=== PATIENT | female | born 1995 | race Caucasian/White ===

== ENCOUNTER 2017-02-02 13:44 | Inpatient (IN) | payer BC ==
[~2017-02-02] VITALS: Ht 160 cm; Wt 78.0 kg
[~2017-02-02 13:44] MED LIST: ASPIR 8181 MG PO; CIPROFLOXACIN500 MG PO; GLU850 PO; GOOD SENSE ASPI81 M3 PO; HUMALOG MIX 50/10 ML SQ; HUMALOG100 U/ML SC; HUMALOG100 U/ML SQ; HUMULIN R100 U/1 M1 SC; HUMULIN10 ML SQ; INS7030 SC; LAC PO; LANTUS SOLOS100 U/M1 SC; LANTUS SOLOS100 U/M1 SQ; LEVEMIR100 U/M1 SC; LEVEMIR100 U/M1 SQ; LIPI10 PO; MAC100 PO; ZOC10 PO
[2017-02-02 14:59] LABS: PLATELET COUNT 496 x10^3mcL (130-400); RED CELL DISTRIBUTION WIDTH 16.4 % (11.5-14.5)
[2017-02-02 15:02] LABS: CALCIUM 9.6 mg/dL (8.5-10.1); CARBON DIOXIDE 10.8 mmol/L (21-32); CREATININE SERUM 1.4 mg/dL (0.6-1.0)
[2017-02-02 15:07] LABS: AMPHETAMINE QUAL UR NONE DETECTED (NEG <=1000)
[2017-02-02 15:07] LABS: ALBUMIN 4.3 g/dL (3.4-5.0); BILIRUBIN TOTAL 0.5 mg/dL (0.20-1.00); MAGNESIUM 2.3 mg/dL (1.8-2.4); PHOSPHOROUS 3.8 mg/dL (2.5-4.9)
[2017-02-02 15:09] LABS: TOTAL PROTEIN, SERUM 9.6 g/dL (6.4-8.2)
[2017-02-02 15:27] LABS: BAND NEUTROPHIL 0 % (0-10); BASOPHIL 0 % (0-2); MONOCYTE 4 % (0-7); SEGMENTED NEUTROPHILS 84 % (37-75)
[2017-02-02 15:28] LABS: PLATELET MORPHOLOGY PLATELETS NORMAL; rbc morphology (normal/abnorm) NORMAL (NORMAL)
[2017-02-02 16:18] LABS: UA SPECIFIC GRAVITY >=1.030 (1.005-1.035); microscopic required? YES; urine erythrocyte 1+ (NEGATIVE)
[2017-02-02 16:35] LABS: CHOLESTEROL/HDL RATIO 2.5
[2017-02-02 16:36] LABS: T3 TOTAL 0.77 ng/mL
[2017-02-02 16:43] LABS: FREE T4 0.96 ng/dL (0.76-1.46); FREE THYROXINE INDEX 2.5 ug/dL (1.4-4.5); T4(THYROXINE) 9.7 ug/dL (4.7-13.3)
[2017-02-02 16:59] VITALS: BP 116/77
[2017-02-02 20:51] LABS: CALCIUM 8.1 mg/dL (8.5-10.1); CARBON DIOXIDE 13.4 mmol/L (21-32); CHLORIDE SERUM 108 mmol/L (98-107); CREATININE SERUM 0.7 mg/dL (0.6-1.0); GFR1 > 60 mL/min; GLUCOSE SERUM 74 mg/dL (74-106); POTASSIUM SERUM 4.3 mmol/L (3.5-5.1); SODIUM SERUM 139 mmol/L (136-145)
[2017-02-02 20:54] LABS: MAGNESIUM 1.7 mg/dL (1.8-2.4)
[2017-02-02 23:44] VITALS: BP 112/67
[2017-02-03 01:50] LABS: CALCIUM 7.5 mg/dL (8.5-10.1); CARBON DIOXIDE 18.4 mmol/L (21-32); CHLORIDE SERUM 105 mmol/L (98-107); CREATININE SERUM 0.7 mg/dL (0.6-1.0); GFR1 > 60 mL/min; GLUCOSE SERUM 182 mg/dL (74-106); MAGNESIUM 1.5 mg/dL (1.8-2.4); POTASSIUM SERUM 3.6 mmol/L (3.5-5.1); SODIUM SERUM 136 mmol/L (136-145)
[2017-02-03 03:46] VITALS: BP 92/58
[2017-02-03 05:37] LABS: BASOPHIL % 0.3 % (0-2); PLATELET COUNT 342 x10^3mcL (130-400)
[2017-02-03 05:44] LABS: RED CELL DISTRIBUTION WIDTH 16.4 % (11.5-14.5)
[2017-02-03 06:20] LABS: CALCIUM 7.6 mg/dL (8.5-10.1); CARBON DIOXIDE 19.3 mmol/L (21-32); CHLORIDE SERUM 105 mmol/L (98-107); CREATININE SERUM 0.7 mg/dL (0.6-1.0); GFR1 > 60 mL/min; GLUCOSE SERUM 170 mg/dL (74-106); MAGNESIUM 1.5 mg/dL (1.8-2.4); PHOSPHOROUS 1.7 mg/dL (2.5-4.9); POTASSIUM SERUM 3.3 mmol/L (3.5-5.1); SODIUM SERUM 136 mmol/L (136-145)
[2017-02-03 07:53] VITALS: BP 103/58
[2017-02-03 08:39] LABS: CALCIUM 7.5 mg/dL (8.5-10.1); CARBON DIOXIDE 19.8 mmol/L (21-32); CHLORIDE SERUM 106 mmol/L (98-107); CREATININE SERUM 0.6 mg/dL (0.6-1.0); GFR1 > 60 mL/min; GLUCOSE SERUM 117 mg/dL (74-106); MAGNESIUM 1.5 mg/dL (1.8-2.4); PHOSPHOROUS 1.5 mg/dL (2.5-4.9); POTASSIUM SERUM 3.2 mmol/L (3.5-5.1); SODIUM SERUM 136 mmol/L (136-145)
[2017-02-03 11:26] VITALS: BP 102/68
[2017-02-03 17:48] VITALS: BP 105/68
[2017-02-03 22:23] VITALS: BP 104/62
[2017-02-04 05:57] VITALS: BP 111/72
[2017-02-04 06:33] LABS: CALCIUM 7.9 mg/dL (8.5-10.1); CARBON DIOXIDE 26.8 mmol/L (21-32); CHLORIDE SERUM 106 mmol/L (98-107); CREATININE SERUM 0.5 mg/dL (0.6-1.0); GFR1 > 60 mL/min; GLUCOSE SERUM 117 mg/dL (74-106); MAGNESIUM 1.7 mg/dL (1.8-2.4); PHOSPHOROUS 2.6 mg/dL (2.5-4.9); POTASSIUM SERUM 3.2 mmol/L (3.5-5.1); SODIUM SERUM 140 mmol/L (136-145)
[2017-02-04 06:41] LABS: BASOPHIL % 0.7 % (0-2); PLATELET COUNT 320 x10^3mcL (130-400); RED CELL DISTRIBUTION WIDTH 17.1 % (11.5-14.5)
[2017-02-04 10:09] VITALS: BP 110/70
[2017-02-04] MEDS ORDERED: ECO81 PO (17:07)
[2017-02-04] MEDS ORDERED: LIPI10 PO (17:07)
[2017-02-04] MEDS ORDERED: THERA TABS1 TAB PO (17:08)
[2017-02-04 17:44] VITALS: BP 110/70
[2017-02-04 18:19] VITALS: BP 115/70
== END 2017-02-04 21:27 | disposition home or self-care (01) | DRG 637 ==
LOC: ED 13:44 → IC 15:41 → DU 15:41 → IC 17:57 → DU 02-03 14:05 → MU 02-04 12:24
PROVIDERS: Emergency Medicine; Family Medicine; ADMIT Family Medicine
PROC: 05HM33Z Insertion of Infusion Device into Right Internal Jugular Vein, Percutaneous Approach (ICD-10-PCS; principal; 2017-02-02)
PROC: B543ZZA Ultrasonography of Right Jugular Veins, Guidance (ICD-10-PCS; 2017-02-02)
DX: E13.10 Other specified diabetes mellitus with ketoacidosis without coma (principal); N17.0 Acute kidney failure with tubular necrosis; R80.8 Other proteinuria; E78.5 Hyperlipidemia, unspecified; D72.828 Other elevated white blood cell count; E78.1 Pure hyperglyceridemia; E11.51 Type 2 diabetes mellitus with diabetic peripheral angiopathy without gangrene; F43.0 Acute stress reaction; Z83.3 Family history of diabetes mellitus; Z79.4 Long term (current) use of insulin
CPT/HCPCS: 36556; 36600; 80307; 83880; 84439; G0480; J1642; J1815; J1817; J1956; J2060; J2405; J3475; J3490; J7030; Q0092

== ENCOUNTER 2017-03-16 17:31 | Emergency (ER) | payer BC ==
[~2017-03-16] VITALS: Ht 162.6 cm; Wt 77.2 kg
[~2017-03-16 17:31] MED LIST changes: +ECO81 PO; +THERA TABS1 TAB PO
[2017-03-16 21:14] VITALS: BP 114/74
== END 2017-03-16 21:14 | disposition home or self-care (01) ==
LOC: ED 17:31
DX: Z76.0 Encounter for issue of repeat prescription (principal); E11.65 Type 2 diabetes mellitus with hyperglycemia; Z79.4 Long term (current) use of insulin
CPT/HCPCS: J1815; J7030

== ENCOUNTER 2017-04-05 10:53 | Emergency (ER) | payer BC ==
[2017-04-05 11:01] VITALS: BP 119/74
== END 2017-04-05 12:07 | disposition home or self-care (01) ==
LOC: ED 10:53
DX: Z76.0 Encounter for issue of repeat prescription (principal); E10.9 Type 1 diabetes mellitus without complications

== ENCOUNTER 2017-04-20 07:58 | Emergency (ER) | payer BC ==
[2017-04-20 08:00] VITALS: BP 124/74
== END 2017-04-20 08:55 | disposition home or self-care (01) ==
LOC: ED 07:58
DX: Z76.0 Encounter for issue of repeat prescription (principal); E11.65 Type 2 diabetes mellitus with hyperglycemia; I10 Essential (primary) hypertension; Z79.4 Long term (current) use of insulin

== ENCOUNTER 2017-05-15 22:09 | Emergency (ER) | payer BC ==
[2017-05-16 02:00] LABS: CALCIUM 8.4 mg/dL (8.5-10.1); CARBON DIOXIDE 25.7 mmol/L (21-32); CHLORIDE SERUM 103 mmol/L (98-107); CREATININE SERUM 0.6 mg/dL (0.6-1.0); GFR1 > 60 mL/min; GLUCOSE SERUM 128 mg/dL (74-106); POTASSIUM SERUM 4.3 mmol/L (3.5-5.1); SODIUM SERUM 137 mmol/L (136-145)
[2017-05-16 02:04] LABS: ALBUMIN 3.4 g/dL (3.4-5.0); ALKALINE PHOSPHATASE 83 U/L (46-116); ALT/SGPT 19 U/L (14-59); AST/SGOT 16 U/L (15-37); LIPASE 135 IU/L (73-393); TOTAL PROTEIN, SERUM 7.4 g/dL (6.4-8.2)
[2017-05-16 03:15] VITALS: BP 137/76
== END 2017-05-16 03:20 | disposition home or self-care (01) ==
LOC: ED 22:09
PROVIDERS: Emergency Medicine
DX: R10.10 Upper abdominal pain, unspecified (principal); E11.9 Type 2 diabetes mellitus without complications; Z79.4 Long term (current) use of insulin; Z79.899 Other long term (current) drug therapy
CPT/HCPCS: 36415

== ENCOUNTER 2017-05-16 22:54 | Emergency (ER) | payer BC ==
[2017-05-17 03:16] VITALS: BP 140/91
== END 2017-05-17 03:16 | disposition home or self-care (01) ==
LOC: ED 22:54
DX: R10.13 Epigastric pain (principal); E11.9 Type 2 diabetes mellitus without complications; Z79.4 Long term (current) use of insulin

== ENCOUNTER 2018-04-28 14:52 | Inpatient (IN) | payer BC ==
[~2018-04-28] VITALS: Ht 162.6 cm; Wt 75.3 kg
[2018-04-28 14:57] VITALS: Ht 162.6 cm; Wt 75.3 kg
[2018-04-28 15:34] LABS: PLATELET COUNT 351 x10^3mcL (130-400)
[2018-04-28 15:40] LABS: RED CELL DISTRIBUTION WIDTH 16.3 % (11.5-14.5)
[2018-04-28 15:44] LABS: ALBUMIN 3.6 g/dL (3.4-5.0); ALKALINE PHOSPHATASE 114 U/L (46-116); ALT/SGPT 25 U/L (14-59); AST/SGOT 17 U/L (15-37); BILIRUBIN TOTAL 0.6 mg/dL (0.20-1.00); CARBON DIOXIDE 23.1 mmol/L (21-32); CHLORIDE SERUM 102 mmol/L (98-107); CREATININE SERUM 0.6 mg/dL (0.6-1.0); GFR1 > 60 mL/min; GLUCOSE SERUM 209 mg/dL (74-106); LIPASE 67 IU/L (73-393); POTASSIUM SERUM 3.9 mmol/L (3.5-5.1); SODIUM SERUM 139 mmol/L (136-145); TOTAL PROTEIN, SERUM 7.8 g/dL (6.4-8.2)
[2018-04-28 15:45] LABS: AMYLASE 24 U/L (25-115)
[2018-04-28 15:48] LABS: CALCIUM 8.7 mg/dL (8.5-10.1)
[2018-04-28 15:58] LABS: BAND NEUTROPHIL 0 % (0-10); BASOPHIL 0 % (0-2); MONOCYTE 4 % (0-7); SEGMENTED NEUTROPHILS 92 % (37-75)
[2018-04-28 15:59] LABS: rbc morphology (normal/abnorm) ABNORMAL (NORMAL)
[2018-04-28] MEDS ORDERED: RELION HUMUL100 U/M2 (16:31)
[2018-04-28 16:54] LABS: UA SPECIFIC GRAVITY >=1.030 (1.005-1.035); microscopic required? YES; urine erythrocyte NEGATIVE (NEGATIVE)
[2018-04-28 17:08] VITALS: BP 119/77
[2018-04-28 18:51] LABS: T3 TOTAL 0.99 ng/mL
[2018-04-28 18:56] LABS: MAGNESIUM 1.9 mg/dL (1.8-2.4); PHOSPHOROUS 3.8 mg/dL (2.5-4.9)
[2018-04-28 18:59] LABS: CHOLESTEROL/HDL RATIO 1.7
[2018-04-28 19:07] LABS: FREE T4 1.13 ng/dL (0.76-1.46); FREE THYROXINE INDEX 2.9 ug/dL (1.4-4.5); T4(THYROXINE) 9.3 ug/dL (4.7-13.3)
[2018-04-28 22:37] VITALS: BP 103/66
[2018-04-29 01:09] LABS: CALCIUM 7.8 mg/dL (8.5-10.1); CARBON DIOXIDE 25.3 mmol/L (21-32); CHLORIDE SERUM 107 mmol/L (98-107); CREATININE SERUM 0.4 mg/dL (0.6-1.0); GFR1 > 60 mL/min; GLUCOSE SERUM 152 mg/dL (74-106); POTASSIUM SERUM 3.4 mmol/L (3.5-5.1); SODIUM SERUM 140 mmol/L (136-145)
[2018-04-29 05:37] VITALS: BP 98/56
[2018-04-29 06:39] LABS: BASOPHIL % 0.4 % (0-2); PLATELET COUNT 286 x10^3mcL (130-400)
[2018-04-29 06:40] LABS: RED CELL DISTRIBUTION WIDTH 16.2 % (11.5-14.5)
[2018-04-29 06:51] LABS: CALCIUM 7.5 mg/dL (8.5-10.1); CARBON DIOXIDE 22.9 mmol/L (21-32); CHLORIDE SERUM 109 mmol/L (98-107); CREATININE SERUM 0.5 mg/dL (0.6-1.0); GFR1 > 60 mL/min; GLUCOSE SERUM 122 mg/dL (74-106); POTASSIUM SERUM 3.9 mmol/L (3.5-5.1); SODIUM SERUM 141 mmol/L (136-145)
[2018-04-29 09:15] VITALS: BP 111/80
[2018-04-29 13:25] VITALS: BP 100/57
[2018-04-29 17:57] VITALS: BP 106/70
[2018-04-29 20:00] VITALS: BP 109/62
[2018-04-30 05:52] VITALS: BP 107/67
[2018-04-30 07:07] LABS: CALCIUM 8.2 mg/dL (8.5-10.1); CHLORIDE SERUM 109 mmol/L (98-107); CREATININE SERUM 0.5 mg/dL (0.6-1.0); GFR1 > 60 mL/min; GLUCOSE SERUM 170 mg/dL (74-106); POTASSIUM SERUM 3.7 mmol/L (3.5-5.1); SODIUM SERUM 139 mmol/L (136-145)
[2018-04-30 07:18] LABS: BASOPHIL % 0.6 % (0-2); PLATELET COUNT 285 x10^3mcL (130-400); RED CELL DISTRIBUTION WIDTH 16.6 % (11.5-14.5)
[2018-04-30 09:45] VITALS: BP 105/66
[2018-04-30 13:23] VITALS: BP 96/57
[2018-04-30 13:41] VITALS: BP 96/57
[2018-04-30 16:40] VITALS: BP 99/56
[2018-04-30 19:52] VITALS: BP 99/68
[2018-04-30] MEDS ORDERED: LEVEMIR100 U/M1 SQ (21:10)
== END 2018-04-30 21:36 | disposition home or self-care (01) | DRG 341 ==
LOC: ED 14:52 → DU 16:22
PROVIDERS: Emergency Medicine; Family Medicine
PROC: 0DTJ4ZZ Resection of Appendix, Percutaneous Endoscopic Approach (ICD-10-PCS; principal; 2018-04-28)
DX: K35.80 Unspecified acute appendicitis (principal); N17.0 Acute kidney failure with tubular necrosis; K31.84 Gastroparesis; Z53.29 Procedure and treatment not carried out because of patient's decision for other reasons; E10.43 Type 1 diabetes mellitus with diabetic autonomic (poly)neuropathy; D72.829 Elevated white blood cell count, unspecified
CPT/HCPCS: 83880; 84439; 94150; J0330; J1644; J1815; J1885; J2250; J2270; J2405; J2543; J2704; J2710; J3010; J3490; J7030; Q0092; Q0162; Q9967